=== PATIENT | male | born 1985 | race American Indian/Alaskan Native ===

== ENCOUNTER 2021-12-11 18:13 | Emergency (ER) | payer MEDICARE ==
[2021-12-11 18:20] VITALS: BP 124/80
[2021-12-11 19:06] LABS: Basophils # (Auto) 0.1 K/mm3 (0.0-0.1); Basophils % (Auto) 1.2 % (0.0-1.8); Eosinophils # (Auto) 0.2 K/mm3 (0.0-0.4); Eosinophils % (Auto) 2.2 % (0.0-4.3); Hematocrit 44.4 % (35.5-45.6); Hemoglobin 15.1 gm/dl (11.8-15.2); Lymphocytes # (Auto) 3.1 K/mm3 (1.2-5.4); Lymphocytes % (Auto) 39.9 % (13.4-35.0); Mean Corpuscular HGB Conc 34 % (32-34); Mean Corpuscular Volume 91 fl (84-94); Monocytes # (Auto) 0.8 K/mm3 (0.0-0.8); Monocytes % (Auto) 10.1 % (0.0-7.3); Platelet Count 352 K/mm3 (140-440); Red Blood Count 4.91 M/mm3 (3.65-5.03); Red Cell Distribution Width 15.4 % (13.2-15.2)
[2021-12-11 19:41] LABS: BUN/Creatinine Ratio 13; Blood Urea Nitrogen 12 mg/dL (9-20); Calcium 8.7 mg/dL (8.4-10.2); Hemolysis Index 38
--- NOTE | 2021-12-11 22:47 | Emergency Department Report ---
ED Alcohol HPI - General Chief Complaint: Alcohol Stated Complaint: ETOH Time Seen by Provider: 12/11/21 22:18 Source: EMS Mode of arrival: Stretcher Limitations: Other - History of Present Illness Initial Comments: Patient is 36 years old male with no significant past medical history. Patient brought to the emergency room via EMS from a local store for alcohol intoxication evaluation. Upon my evaluation patient is obtunded however he is responding to questions appropriately. Patient denied any suicidal homicidal ideation. He also denied any auditory or visual hallucination. Patient does not have any complaint at this moment. 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 Allergies Allergy/AdvReac Type Severity Reaction Status Date / Time No Known Allergies Allergy Verified 12/11/21 18:19 ED Review of Systems ROS: Stated complaint: ETOH Other details as noted in HPI Comment: All other systems reviewed and negative Constitutional: denies: chills, fever Respiratory: denies: cough, shortness of breath, SOB with exertion Cardiovascular: denies: chest pain, palpitations Gastrointestinal: denies: abdominal pain, nausea, vomiting, diarrhea, constipat ion, hematemesis, melena, hematochezia Musculoskeletal: denies: back pain Neurological: denies: headache, weakness, numbness Psychiatric: denies: anxiety, depression, auditory hallucinations, visual hallucinations, homicidal thoughts, suicidal thoughts ED Physical Exam - General Limitations: Other General appearance: appears intoxicated, obtunded - Head Head exam: Present: atraumatic, normocephalic, normal inspection - Eye Eye exam: Present: normal appearance, PERRL - ENT ENT exam: Present: normal exam, normal orophraynx, mucous membranes moist - Neck Neck exam: Present: normal inspection, full ROM. Absent: tenderness, meningismus - Respiratory Respiratory exam: Present: normal lung sounds bilaterally - Cardiovascular Cardiovascular Exam: Present: regular rate, normal rhythm, normal heart sounds - GI/Abdominal GI/Abdominal exam: Present: soft, normal bowel sounds. Absent: distended, tenderness, guarding, rebound, rigid, organomegaly, mass, bruit, pulsatile mass, hernia - Extremities Exam Extremities exam: Present: normal inspection, full ROM, normal capillary refill. Absent: tenderness, pedal edema, joint swelling, calf tenderness - Back Exam Back exam: Present: normal inspection, full ROM. Absent: CVA tenderness (R), CVA tenderness (L) - Neurological Exam Neurological exam: Present: alert, oriented X3, CN II-XII intact, normal gait, reflexes normal. Absent: motor sensory deficit - Psychiatric Psychiatric exam: Present: normal mood. Absent: homicidal ideation, suicidal ideation - Skin Skin exam: Present: warm, intact, normal color ED Course Vital Signs 12/11/21 18:17 Pulse Rate 94 H Blood Pressure 124/80 [Right] O2 Sat by Pulse 98 Oximetry ED Medical Decision Making - Lab Data Result diagrams: 12/11/21 18:42 12/11/21 19:19 - Medical Decision Making Patient is 36 years old male with no significant past medical history. Patient brought to the emergency room via EMS from a local store for alcohol intoxication evaluation. Upon my evaluation patient is obtunded however he is responding to questions appropriately. Patient denied any suicidal homicidal ideation. He also denied any auditory or visual hallucination. Patient does not have any complaint at this moment. Labs reviewed and is unremarkable except for alcohol level of 0.33. Patient observed in the ER for more than 9 hours. Patient now is awake, alert and oriented x3 in no acute distress. Patient is completely sober. Patient still denying any suicidal or homicidal ideation. Patient is asking for alcohol rehab resources. Patient provided with a local alcohol rehab facilities. Patient advised to follow-up with his primary care physician in the next 2 to 3 days and to return to the ER if he develop any symptoms Critical care attestation.: If time is entered above; I have spent that time in minutes in the direct care of this critically ill patient, excluding procedure time. ED Disposition Clinical Impression: Alcohol intoxication Disposition: 01 HOME / SELF CARE / HOMELESS Is pt being admited?: No Condition: Stable Instructions: Binge-Drinking Information, Adult Referrals: IRVIN COE MD [Primary Care Provider] - 3-5 Days
== END 2021-12-12 05:31 | disposition home or self-care (01) ==
LOC: ED 18:13
DX: F10.129 Alcohol abuse with intoxication, unspecified (principal)
CPT/HCPCS: 36415; 80048; 80320; 85025; 99283; G0480

== ENCOUNTER 2021-12-13 01:59 | Emergency (ER) | payer MEDICARE ==
[2021-12-13 02:23] VITALS: BP 152/113
== END 2021-12-13 09:23 | disposition home or self-care (01) ==
LOC: ED 01:59
DX: Z00.00 Encounter for general adult medical examination without abnormal findings (principal); Z53.21 Procedure and treatment not carried out due to patient leaving prior to being seen by health care provider

== ENCOUNTER 2021-12-18 21:19 | Emergency (ER) | payer MEDICARE ==
[2021-12-18] MEDS ORDERED: MAGNESIUM SULFATE 2 GM/50 ML BAG IV ONE (21:42)
--- NOTE | 2021-12-18 21:44 | Emergency Department Report ---
HPI - General Chief Complaint: Alcohol Time Seen by Provider: 12/18/21 21:38 - [facility] HPI: Montgomery 25 The patient is a 36-year-old male presenting with a chief complaint of alcohol intoxication. Per EMS the patient was about to get arrested for trespassing at a gas station and he was found walking around subsequently brought to the ED secondary to intoxication. Patient is intoxicated and awakens to sternal rub but does not answer questions ED Past Medical Hx - Past Medical History Previous Medical History?: No - Surgical History Past Surgical History?: No - Family History Family history: no significant - Social History Substance Use Type: Alcohol - Medications Home Medications: Home Medications Medication Instructions Recorded Confirmed Last Taken Type No Known Home Medications [No 12/20/21 12/20/21 Unknown History Reported Home Medications] ED Review of Systems ROS: Stated complaint: CYST Other details as noted in HPI Comment: Unobtainable due to pts medical conditions (Intoxicated) Physical Exam - Physical Exam Vital Signs: Vital Signs 12/18/21 21:29 Temperature 98 F Pulse Rate 86 Respiratory 18 Rate Blood Pressure 150/86 [Right] O2 Sat by Pulse 98 Oximetry Physical Exam: GENERAL: The patient is well-developed well-nourished male sleeping on stretcher only awakens to sternal rub but does not answer questions. [] HEENT: Normocephalic. Atraumatic. Strabismus while sleeping. Patient has moist mucous membranes. NECK: Supple. Trachea midline CHEST/LUNGS: Clear to auscultation. There is no respiratory distress noted. HEART/CARDIOVASCULAR: Regular. There is no tachycardia. There is no gallop rub or murmur. ABDOMEN: Abdomen is soft, nontender. Patient has normal bowel sounds. There is no abdominal distention. SKIN: There is no rash. There is no edema. There is no diaphoresis. NEURO: The patient is asleep and intoxicated and only awakens to sternal rub. Patient does not answer questions. The patient has normal speech. MUSCULOSKELETAL: There is no evidence of acute injury. ED Course Vital Signs 12/18/21 21:29 Temperature 98 F Pulse Rate 86 Respiratory 18 Rate Blood Pressure 150/86 [Right] O2 Sat by Pulse 98 Oximetry ED Medical Decision Making - Lab Data Result diagrams: 12/18/21 22:38 12/18/21 22:38 Lab Results 12/18/21 12/18/2112/18/22 Range/Units 22:38 22:38 22:38 WBC 5.2 (4.5-11.0) K/mm3 RBC 4.45 (3.65-5.03) M/mm3 Hgb 13.2 (11.8-15.2) gm/dl Hct 40.5 (35.5-45.6) % MCV 91 (84-94) fl MCH 30 (28-32) pg MCHC 33 (32-34) % RDW 15.3 H (13.2-15.2) % Plt Count 245 (140-440) K/mm3 Lymph % (Auto) 48.7 H (13.4-35.0) % Wright % (Auto) 9.3 H (0.0-7.3) % Eos % (Auto) 5.2 H (0.0-4.3) % Baso % (Auto) 1.4 (0.0-1.8) % Lymph # (Auto) 2.6 (1.2-5.4) K/mm3 Wright # (Auto) 0.5 (0.0-0.8) K/mm3 Eos # (Auto) 0.3 (0.0-0.4) K/mm3 Baso # (Auto) 0.1 (0.0-0.1) K/mm3 Add Manual Diff Complete Seg Neutrophils % 35.4 L (40.0-70.0) % Nucleated RBC % Not Reportable Seg Neutrophils # 1.9 (1.8-7.7) K/mm3 WBC Morphology Not Reportable Hypersegmented Neuts Not Reportable Hyposegmented Neuts Not Reportable Hypogranular Neuts Not Reportable Smudge Cells Not Reportable Toxic Granulation Not Reportable Toxic Vacuolation Not Reportable Dohle Bodies Not Reportable Pelger-Huet Anomaly Not Reportable Bucky Rods Not Reportable Platelet Estimate Not Reportable Clumped Platelets Not Reportable Plt Clumps, EDTA Not Reportable Large Platelets Not Reportable Giant Platelets Not Reportable Platelet Satelliting Not Reportable Plt Morphology Comment Not Reportable RBC Morphology Not Reportable Dimorphic RBCs Not Reportable Polychromasia Not Reportable Hypochromasia Not Reportable Poikilocytosis Not Reportable Anisocytosis Not Reportable Microcytosis Not Reportable Macrocytosis Not Reportable Spherocytes Not Reportable Pappenheimer Bodies Not Reportable Sickle Cells Not Reportable Target Cells Not Reportable Tear Drop Cells Not Reportable Ovalocytes Not Reportable Helmet Cells Not Reportable [place]it[place] Bodies Not Reportable Byron Rings Not Reportable Douglas Cells Not Reportable Bite Cells Not Reportable Crenated Cell Not Reportable Elliptocytes Not Reportable Acanthocytes (Spur) Not Reportable Rouleaux Not Reportable Hemoglobin C Crystals Not Reportable Schistocytes Not Reportable Malaria parasites Not Reportable Gustabo Bodies Not Reportable Hem Pathologist Commnt No Sodium 142 (137-145) mmol/L Potassium 3.8 (3.6-5.0) mmol/L Chloride 105.4 (98-107) mmol/L Carbon Dioxide 22 (22-30) mmol/L Anion Gap 18 mmol/L BUN 9 (9-20) mg/dL Creatinine 0.9 (0.8-1.3) mg/dL Estimated GFR > 60 ml/min BUN/Creatinine Ratio 10 % Glucose 109 H (75-100) mg/dL Calcium 8.5 (8.4-10.2) mg/dL Total Bilirubin < 0.20 (0.1-1.2) mg/dL AST 20 (5-40) units/L ALT 17 (7-56) units/L Alkaline Phosphatase 82 (35-129) units/L Total Protein 6.4 (6.3-8.2) g/dL Albumin 3.8 L (3.9-5) g/dL Albumin/Globulin Ratio 1.5 % Plasma/Serum Alcohol 0.28 H (0-0.07) % - Differential Diagnosis Alcohol intoxication Critical care attestation.: If time is entered above; I have spent that time in minutes in the direct care of this critically ill patient, excluding procedure time. ED Disposition Clinical Impression: Alcohol intoxication Disposition: 01 HOME / SELF CARE / HOMELESS Is pt being admited?: No Does the pt Need Aspirin: No Condition: Stable Instructions: Alcohol Use Disorder Referrals: IRVIN COE MD [Primary Care Provider] - 3-5 Days
[2021-12-18] MEDS ORDERED: THIAMINE 100 MG, FOLIC ACID 1 MG, MULTIPLE VITAMIN INJ, ADULT 10 ML in SODIUM CHLORIDE ... IV ONE (22:41)
[2021-12-18 23:07] LABS: Hematocrit 40.5 % (35.5-45.6); Hemoglobin 13.2 gm/dl (11.8-15.2); Mean Corpuscular HGB Conc 33 % (32-34); Mean Corpuscular Volume 91 fl (84-94); Platelet Count 245 K/mm3 (140-440); Red Blood Count 4.45 M/mm3 (3.65-5.03); Red Cell Distribution Width 15.3 % (13.2-15.2)
[2021-12-18 23:17] LABS: Basophils # (Auto) 0.1 K/mm3 (0.0-0.1); Basophils % (Auto) 1.4 % (0.0-1.8); Eosinophils # (Auto) 0.3 K/mm3 (0.0-0.4); Eosinophils % (Auto) 5.2 % (0.0-4.3); Lymphocytes # (Auto) 2.6 K/mm3 (1.2-5.4); Lymphocytes % (Auto) 48.7 % (13.4-35.0); Monocytes # (Auto) 0.5 K/mm3 (0.0-0.8); Monocytes % (Auto) 9.3 % (0.0-7.3)
[2021-12-18 23:24] LABS: Alanine Aminotransferase 17 units/L (7-56); Albumin 3.8 g/dL (3.9-5); BUN/Creatinine Ratio 10; Blood Urea Nitrogen 9 mg/dL (9-20); Calcium 8.5 mg/dL (8.4-10.2); Hemolysis Index 20
[2021-12-19] MEDS ORDERED: MAGNESIUM SULFATE 2 GM/50 ML BAG IV ONE (05:51)
[2021-12-19 06:05] VITALS: BP 131/81
--- NOTE | 2021-12-19 06:48 | Event Note ---
Mr. Montgomery is awake alert. He is insightful with steady gait. He walks with the secretary administrative assistant station. He has politely to be discharged. He is clinically sober on my medical examination. He has been observed in the emergency department for 9- 1/2 hours.
== END 2021-12-19 07:01 | disposition home or self-care (01) ==
LOC: ED 21:19
DX: F10.129 Alcohol abuse with intoxication, unspecified (principal)
CPT/HCPCS: 36415; 80053; 85007; 85025; 96365; 96366; 96367; 99283; J3411; J3475; J3490; J7030; 80320; Q0162; G0480

== ENCOUNTER 2021-12-20 02:46 | Emergency (ER) | payer MEDICARE ==
--- NOTE | 2021-12-20 05:45 | Emergency Department Report ---
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: Yes Previous Visits for Alcohol Intoxication?: Yes Recent Trauma: No Associated Symptoms: denies: denies other symptoms, nausea, vomiting, syncope Treatments Prior to Arrival: none - Related Data Allergies Allergy/AdvReac Type Severity Reaction Status Date / Time No Known Allergies Allergy Verified 12/11/21 18:19 ED Review of Systems ROS: Stated complaint: NAUSEA Other details as noted in HPI Constitutional: denies: chills, fever Eyes: denies: eye pain, eye discharge, vision change ENT: denies: ear pain, throat pain Respiratory: denies: cough, shortness of breath, wheezing Cardiovascular: denies: chest pain, palpitations Endocrine: no symptoms reported Gastrointestinal: denies: abdominal pain, nausea, diarrhea Genitourinary: denies: urgency, dysuria Musculoskeletal: denies: back pain, joint swelling, arthralgia Skin: denies: rash, lesions Neurological: denies: headache, weakness, paresthesias Psychiatric: denies: anxiety, depression Hematological/Lymphatic: denies: easy bleeding, easy bruising ED Past Medical Hx - Past Medical History Previous Medical History?: No Hx Hypertension: No - Social History Substance Use Type: Alcohol ED Physical Exam - General General appearance: alert, appears intoxicated - Head Head exam: Present: atraumatic, normocephalic - Eye Eye exam: Present: normal appearance - ENT ENT exam: Present: mucous membranes moist - Neck Neck exam: Present: normal inspection - Respiratory Respiratory exam: Present: normal lung sounds bilaterally. Absent: respiratory distress - Cardiovascular Cardiovascular Exam: Present: regular rate, normal rhythm. Absent: systolic murmur, diastolic murmur, rubs, gallop - GI/Abdominal GI/Abdominal exam: Present: soft, normal bowel sounds - Rectal Rectal exam: Present: deferred - Extremities Exam Extremities exam: Present: normal inspection - Back Exam Back exam: Present: normal inspection - Neurological Exam Neurological exam: Present: alert, oriented X3 - Psychiatric Psychiatric exam: Present: normal affect, normal mood - Skin Skin exam: Present: warm, dry, intact, normal color. Absent: rash ED Medical Decision Making - Medical Decision Making vss , no distress, pt is intoxciated denies any problems Critical care attestation.: If time is entered above; I have spent that time in minutes in the direct care of this critically ill patient, excluding procedure time. ED Disposition Clinical Impression: Alcohol intoxication Disposition: 01 HOME / SELF CARE / HOMELESS Is pt being admited?: No Does the pt Need Aspirin: No Condition: Stable Instructions: Binge-Drinking Information, Adult Referrals: PRIMARY CARE, [Primary Care Provider] - 3-5 Days
[2021-12-20 09:02] VITALS: BP 137/82
== END 2021-12-20 08:51 | disposition home or self-care (01) ==
LOC: ED 02:46
DX: F10.129 Alcohol abuse with intoxication, unspecified (principal); Y90.9 Presence of alcohol in blood, level not specified
CPT/HCPCS: 99283